=== PATIENT | male | born 1980 ===

== ENCOUNTER 2018-01-11 23:49 | Emergency (ER) | payer BC ==
[2018-01-11 23:58] VITALS: RESP 20
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
[2018-01-12 01:50] VITALS: BP 143/88; PULSE 90; TEMP 97.9
[2018-01-12 02:56] VITALS: O2SAT 95
--- NOTE | 2018-01-12 10:13 | RAD ---
PROCEDURE: Radiographs of the Left Shoulder HISTORY: pain, fall COMPARISON: No prior. FINDINGS: BONES: Normal. No fracture. JOINTS: Normal. Glenohumeral and acromioclavicular joints preserved. No osteoarthritis. SOFT TISSUES: Normal. OTHER FINDINGS: None. IMPRESSION: No evidence of acute fracture or dislocation.
--- NOTE | 2018-01-12 10:29 | RAD ---
PROCEDURE: Radiographs of the Chest and Left Ribs. HISTORY: pain, left ribs s/p fall COMPARISON: None available. TECHNIQUE: Frontal radiograph of the chest and multiple oblique radiographs of the left ribs were obtained. FINDINGS: LEFT RIBS: No fracture or focal lesion visualized. LUNGS: Clear. PLEURA: No pneumothorax or pleural fluid. CARDIOVASCULAR: Normal sized heart. No pulmonary vascular congestion. OTHER FINDINGS: None. IMPRESSION: No evidence of acute displaced fracture of the left ribs. No evidence of pleural effusion or pneumothorax.
== END 2018-01-12 01:50 | disposition home or self-care (01) ==
LOC: C.ER 23:49
DX: T14.8XXA Other injury of unspecified body region, initial encounter (principal); V18.0XXA Pedal cycle driver injured in noncollision transport accident in nontraffic accident, initial encounter; Y93.55 Activity, bike riding; Y92.89 Other specified places as the place of occurrence of the external cause